=== PATIENT | male | born 1975 | race Caucasian/White ===

== ENCOUNTER 2017-11-13 08:15 | Observation (INO) ==
--- NOTE | 2017-11-13 08:28 | Emergency Department Note ---
Disposition Clinical Impression: Acute appendicitis Disposition: Admitted As Inpatient Condition: Undetermined General Adult HPI - General Chief complaint: ED Abdominal Pain Stated complaint: RLQ pain Time Seen by Provider: 11/13/17 08:21 Source: patient Limitations: no limitations - History of Present Illness Pain Scale: 7 - Related Data Home Medications Medication Instructions Recorded Confirmed Lisinopril-HCTZ 10-12.5 [Prinzide 1 tab PO DAILY 11/13/17 11/13/17 10-12.5] Allergies Allergy/AdvReac Type Severity Reaction Status Date / Time shellfish derived Allergy Swelling Verified 11/13/17 08:18 of Lip/Tongue/Throat Past Medical History - Past Medical History Medical history: Reports: asthma, hypertension Psychiatric history: Reports: no psych history - Social History Smoking Status: Never smoker Smokeless Tobacco Status: Yes Alcohol use: Reports: occasionally, heavy Drug use: Reports: none Physical Exam - General Limitations: no limitations General appearance: alert Course Vital Signs Temperature 98.7 F 11/13/17 08:18 Pulse Rate 78 11/13/17 08:18 Respiratory Rate 20 11/13/17 08:18 Blood Pressure 162/90 11/13/17 08:18 O2 Sat by Pulse Oximetry 98 11/13/17 08:18 Temperature 98.7 F 11/13/17 08:18 Pulse Rate 84 11/13/17 12:12 Respiratory Rate 16 11/13/17 12:12 Blood Pressure 138/85 11/13/17 12:12 O2 Sat by Pulse Oximetry 97 11/13/17 12:12 Oxygen Delivery Oxygen Delivery Room Air Medical Decision Making - Lab Data Result diagrams: 11/13/17 08:33 11/13/17 08:33 Lab Results 11/13/17 11/13/17 11/13/17 Range/Units 08:33 08:33 08:46 WBC 10.6 (4.3-11.1) K/mcL RBC 4.88 (4.19-5.50) M/mcL Hgb 16.2 (12.9-16.9) g/dL Hct 45.6 (37.5-50.1) % MCV 93.4 (83.0-100.0) fL MCH 33.2 (28.0-33.3) pg MCHC 35.5 (31.6-35.5) g/dL RDW 12.3 (11.5-14.5) % Plt Count 260 (140-400) K/mcL MPV 10.0 (9.4-12.4) fL Immature Gran % 0.2 (0-4) % Seg Neutrophils % 76.1 % Lymphocytes % 15.0 % Monocytes % 7.3 % Eosinophils % 0.8 % Basophils % 0.6 % Neutrophils # 8.1 (1.6-8.9) K/mcL Lymphocytes # 1.6 (0.6-4.6) K/mcL Monocytes # 0.8 (0.0-1.3) K/mcL Eosinophils # 0.1 (0.0-0.6) K/mcL Basophils # 0.1 (0.0-0.2) K/mcL Sodium 136 (136-145) mEq/L Potassium 3.6 (3.5-5.1) mEq/L Chloride 102 (98-107) mEq/L Carbon Dioxide 26 (23-29) mEq/L BUN 6 (6-20) mg/dL Creatinine 0.88 (0.70-1.30) mg/dL Est GFR ( Amer) > 60 (> 60) Est GFR (Non-Af Amer) > 60 (> 60) BUN/Creatinine Ratio 7 (6-26) Glucose 104 (70-105) mg/dL Calculated Osmolality 280 (280-300) Calcium 9.2 (8.6-10.3) mg/dL Total Bilirubin 0.8 (0.3-1.0) mg/dL Direct Bilirubin 0.2 (0.0-0.2) mg/dL Indirect Bilirubin 0.6 (0.0-1.2) mg/dL AST 26 (13-39) Units/L ALT 35 (7-52) Units/L Alkaline Phosphatase 90 (34-104) Units/L Serum Total Protein 7.4 (6.4-8.9) g/dL Albumin 4.5 (3.5-5.7) g/dL Globulin 2.9 (2.4-3.5) g/dL Albumin/Globulin Ratio 1.6 (1.1-2.2) Lipase 30 (11-82) Units/L Urine Color Yellow (Yellow) Urine Clarity Clear (Clear) Urine pH 6.0 (5.0-8.0) pH Units Ur Specific [place] 1.016 (1.010-1.025) Urine Protein Negative (Neg-Trace) mg/dL Urine Glucose (UA) Normal (Normal) mg/dL Urine Ketones Trace H (Negative) mg/dL Urine Blood Negative (Negative) Urine Nitrite Negative (Negative) Urine Bilirubin Negative (Negative) Urine Urobilinogen Normal (Normal) mg/dL Ur Leukocyte Esterase Negative (Negative) Urine Microscopic RBC 0-3 (0-3) per hpf Urine Microscopic WBC 0-3 (0-3) per hpf Ur Squamous Epith Cells None Seen (None-Few) per lpf Urine Bacteria None Seen (None-Few) per hpf Hyaline Casts None Seen (None-Few) per lpf Ur Culture Indicated? NO (NO) Attestation Statement - Attestation Attestation: I examined this patient and my medical decision-making was reviewed with the Resident Physician. I agree with the documented findings, disposition and treatment plan as described except to the extent set forth below. [id number] time provided Patient arrives complaining of right lower quadrant abdominal pain. I evaluated this patient in conjunction with the resident physician and have identified at the patient has localized right lower quadrant discomfort with palpation. Concern for acute surgical abdomen including such as appendicitis. Workup initiated
--- NOTE | 2017-11-13 08:34 | Emergency Department Note ---
Disposition Clinical Impression: Acute appendicitis Qualifiers: Acute appendicitis type: unspecified acute appendicitis type Qualified Code(s) : K35.80 - Unspecified acute appendicitis Disposition: Admitted As Inpatient Condition: Undetermined Referrals: NONE,PCP [Primary Care Provider] - Forms: ED Satisfaction Letter, Work/School Release Time of Disposition: 09:25 Abdominal Pain HPI - General Chief Complaint: ED Abdominal Pain Stated Complaint: RLQ pain Time Seen by Provider: 11/13/17 08:21 Source: patient Mode of arrival: ambulatory Limitations: no limitations Nursing Notes Reviewed: Yes Vital Signs Reviewed: Yes - History of Present Illness HPI Narrative: 42-year-old male with history of asthma and HTN arrives to the emergency department with right lower quadrant pain that started this morning. The patient has no other associated symptoms. He denies any nausea, vomiting, diarrhea, melena, hematochezia. He appears uncomfortable in the room and states that when he extends over the bumps in his car makes the pain worse. He denies any other complaints at this time. He denies any desire for analgesics at this time. No previous history of surgical history in his abdomen. Pain Scale: 7 - Related Data Allergies Allergy/AdvReac Type Severity Reaction Status Date / Time shellfish derived Allergy Swelling Verified 11/13/17 08:18 of Lip/Tongue/Throat All systems ED: reviewed and negative except as stated. Constitutional: Denies: fever, chills, weakness ENT ED: Denies: congestion Cardiovascular: Denies: chest pain Respiratory: Denies: dyspnea Gastrointestinal: Reports: abdominal pain. Denies: nausea, vomiting, diarrhea, constipation, hematemesis, melena, hematochezia Genitourinary: Denies: urgency, dysuria, frequency, hematuria, testicular pain, testicular mass Musculoskeletal: Denies: back pain, neck pain, arthralgia, myalgia Integumentary: Denies: rash Neurological: Denies: headache Abdominal Pain PMH - Past Medical History Medical history: Reports: asthma, hypertension Male Surgical History: Reports: no surgical history Psychiatric history: Reports: no psych history - Social History Smoking status: Never smoker Alcohol use: Reports: occasionally, heavy Drug use: Reports: none Physical Exam - General Limitations: no limitations General appearance: alert, in no apparent distress - Head Head exam: atraumatic, normocephalic, normal inspection - Eye Eye exam: Present: normal appearance, PERRL, EOMI - ENT ENT exam: normal exam, normal oropharynx, mucous membranes moist - Neck Neck exam: Present: normal inspection, full ROM, trachea midline - Chest Chest inspection: Present: normal inspection, symmetric chest wall rise - Respiratory Respiratory exam: Present: normal lung sounds bilaterally - Cardiovascular Cardiovascular exam: Present: regular rate, normal rhythm, normal heart sounds - Abdominal Exam Abdominal exam: Present: soft, tenderness (RLQ), heel tap sign, tenderness at McBurney's Point. Absent: distention, guarding, rebound, rigidity, psoas sign, obturator sign, Sherwood's sign, Rovsing's sign, pulsatile mass, hernia, scar - Extremities Exam Extremities exam: Present: normal inspection - Neurological Exam Neurological exam: Present: alert, oriented X3 - Skin Skin exam: Present: warm, dry, intact, normal color Course - Reevaluation(s) Reevaluation #1: Patient has uncomplicated appendicitis with appendicolith. Appendix dilated at 1.8 cm. No abscess or perforation. Patient's last by mouth intake was 10PM with food, 0230 AM with three 16 oz beers, 12 oz of water at 0700. Time: 09:15 Vital Signs Temperature 98.7 F 11/13/17 08:18 Pulse Rate 78 11/13/17 08:18 Respiratory Rate 20 11/13/17 08:18 Blood Pressure 162/90 11/13/17 08:18 O2 Sat by Pulse Oximetry 98 11/13/17 08:18 Temperature 98.7 F 11/13/17 08:18 Pulse Rate 78 11/13/17 08:18 Respiratory Rate 20 11/13/17 08:18 Blood Pressure 162/90 11/13/17 08:18 O2 Sat by Pulse Oximetry 98 11/13/17 08:18 Oxygen Delivery Oxygen Delivery Room Air Abdominal Pain - MDM Narrative Medical decision making narrative: We will admit to Dr. Eller. - Lab Data Lab results reviewed: Yes I reviewed the patient's lab results. Result diagrams: 11/13/17 08:33 11/13/17 08:33 Lab Results 11/13/17 11/13/17 11/13/17 Range/Units 08:33 08:33 08:46 WBC 10.6 (4.3-11.1) K/mcL RBC 4.88 (4.19-5.50) M/mcL Hgb 16.2 (12.9-16.9) g/dL Hct 45.6 (37.5-50.1) % MCV 93.4 (83.0-100.0) fL MCH 33.2 (28.0-33.3) pg MCHC 35.5 (31.6-35.5) g/dL RDW 12.3 (11.5-14.5) % Plt Count 260 (140-400) K/mcL MPV 10.0 (9.4-12.4) fL Immature Gran % 0.2 (0-4) % Seg Neutrophils % 76.1 % Lymphocytes % 15.0 % Monocytes % 7.3 % Eosinophils % 0.8 % Basophils % 0.6 % Neutrophils # 8.1 (1.6-8.9) K/mcL Lymphocytes # 1.6 (0.6-4.6) K/mcL Monocytes # 0.8 (0.0-1.3) K/mcL Eosinophils # 0.1 (0.0-0.6) K/mcL Basophils # 0.1 (0.0-0.2) K/mcL Sodium 136 (136-145) mEq/L Potassium 3.6 (3.5-5.1) mEq/L Chloride 102 (98-107) mEq/L Carbon Dioxide 26 (23-29) mEq/L BUN 6 (6-20) mg/dL Creatinine 0.88 (0.70-1.30) mg/dL Est GFR ( Amer) > 60 (> 60) Est GFR (Non-Af Amer) > 60 (> 60) BUN/Creatinine Ratio 7 (6-26) Glucose 104 (70-105) mg/dL Calculated Osmolality 280 (280-300) Calcium 9.2 (8.6-10.3) mg/dL Total Bilirubin 0.8 (0.3-1.0) mg/dL Direct Bilirubin 0.2 (0.0-0.2) mg/dL Indirect Bilirubin 0.6 (0.0-1.2) mg/dL AST 26 (13-39) Units/L ALT 35 (7-52) Units/L Alkaline Phosphatase 90 (34-104) Units/L Serum Total Protein 7.4 (6.4-8.9) g/dL Albumin 4.5 (3.5-5.7) g/dL Globulin 2.9 (2.4-3.5) g/dL Albumin/Globulin Ratio 1.6 (1.1-2.2) Lipase 30 (11-82) Units/L Urine Color Yellow (Yellow) Urine Clarity Clear (Clear) Urine pH 6.0 (5.0-8.0) pH Units Ur Specific [place] 1.016 (1.010-1.025) Urine Protein Negative (Neg-Trace) mg/dL Urine Glucose (UA) Normal (Normal) mg/dL Urine Ketones Trace H (Negative) mg/dL Urine Blood Negative (Negative) Urine Nitrite Negative (Negative) Urine Bilirubin Negative (Negative) Urine Urobilinogen Normal (Normal) mg/dL Ur Leukocyte Esterase Negative (Negative) Urine Microscopic RBC 0-3 (0-3) per hpf Urine Microscopic WBC 0-3 (0-3) per hpf Ur Squamous Epith Cells None Seen (None-Few) per lpf Urine Bacteria None Seen (None-Few) per hpf Hyaline Casts None Seen (None-Few) per lpf Ur Culture Indicated? NO (NO) - Radiology Data Radiology results reviewed: Yes I reviewed the patient's radiology results. Abdomen/Pelvis CT 11/13/17 08:24 IMPRESSION: 1. Acute uncomplicated appendicitis with an appendicolith. D/ / Man Medina MD / Man Medina MD Interpreting Provider: Man Medina MD
[2017-11-13 08:45] LABS: Basophils # 0.1 K/mcL (0.0-0.2); Basophils % 0.6 %; Eosinophils # 0.1 K/mcL (0.0-0.6); Eosinophils % 0.8 %; Hematocrit 45.6 % (37.5-50.1); Hemoglobin 16.2 g/dL (12.9-16.9); Immature Granulocytes % 0.2 % (0-4); Lymphocytes # 1.6 K/mcL (0.6-4.6); Mean Corpuscular HGB Conc 35.5 g/dL (31.6-35.5); Mean Corpuscular Hemoglobin 33.2 pg (28.0-33.3); Mean Corpuscular Volume 93.4 fL (83.0-100.0); Monocytes # 0.8 K/mcL (0.0-1.3); Monocytes % 7.3 %; Neutrophils # 8.1 K/mcL (1.6-8.9); Platelet Count 260 K/mcL (140-400); Red Blood Count 4.88 M/mcL (4.19-5.50); Red Cell Distribution Width 12.3 % (11.5-14.5); Segmented Neutrophils % 76.1 %
[2017-11-13 09:09] LABS: Alanine Aminotransferase 35 Units/L (7-52); Albumin 4.5 g/dL (3.5-5.7); Albumin/Globulin Ratio 1.6 (1.1-2.2); Alkaline Phosphatase 90 Units/L (34-104); Aspartate Amino Transferase 26 Units/L (13-39); BUN/Creatinine Ratio 7 (6-26); Bilirubin,Direct 0.2 mg/dL (0.0-0.2); Bilirubin,Indirect 0.6 mg/dL (0.0-1.2); Bilirubin,Total 0.8 mg/dL (0.3-1.0); Blood Urea Nitrogen 6 mg/dL (6-20); Calcium 9.2 mg/dL (8.6-10.3); Carbon Dioxide 26 mEq/L (23-29); Chloride 102 mEq/L (98-107); Globulin 2.9 g/dL (2.4-3.5); Glucose 104 mg/dL (70-105); Lipase 30 Units/L (11-82); Osmolality,Calculated 280 (280-300); Potassium 3.6 mEq/L (3.5-5.1); Sodium 136 mEq/L (136-145); Total Protein 7.4 g/dL (6.4-8.9); eGFR For African Americans > 60 (> 60); eGFR For Non-African Americans > 60 (> 60)
[2017-11-13 09:16] LABS: Bilirubin,Urine Negative (Negative); Blood,Urine Negative (Negative); Clarity,Urine Clear (Clear); Color,Urine Yellow (Yellow); Glucose,Urine (UA) Normal (Normal); Ketones,Urine Trace mg/dL (Negative); Leukocyte Esterase,Urine Negative (Negative); Nitrite,Urine Negative (Negative); Protein,Urine Negative (Neg-Trace); Specific Gravity,Urine 1.016 (1.010-1.025); Urobilinogen,Urine Normal (Normal)
[2017-11-13] MEDS ORDERED: Piperacillin/Tazobactam 3.375 GM in 0.9 % Sodium Chloride Mini Bag 100 ML IVPB ONE (09:16)
[2017-11-13] MEDS ORDERED: 0.9 % Sodium Chloride 1,000 ML IVC ONE (09:16)
[2017-11-13 09:18] LABS: Bacteria,Urine None Seen per hpf (None-Few); Hyaline Casts,Urine None Seen per lpf (None-Few); RBC,Urine 0-3 per hpf (0-3); Squamous Epithelial Cell,Urine None Seen per lpf (None-Few); WBC,Urine 0-3 per hpf (0-3)
--- NOTE | 2017-11-13 09:55 | General Surg History&Physical ---
Date of Encounter: 11/13/17 Time of Encounter: 09:53 Assessment and Plan (1) Acute appendicitis Current Visit: Yes Status: Acute Plan for laparoscopic appendectomy. Risks, benefits, and expected outcomes explained the patient agrees to proceed. The assessment and plan as outlined above was discussed with the patient and/or family members who expressed understanding and agreement. All questions were answered. Qualifiers: Acute appendicitis type: with localized peritonitis Qualified Code(s): K35.3 - Acute appendicitis with localized peritonitis History of Present Illness HPI: Mr. Melendez is a 42 year old male that reported to the emergency department. He reports pain for the previous 8-10 hours and his right lower quadrant. He denies any fevers or chills. Denies any emesis. He denies any nausea currently. He does admit to anorexia. His last meal intake was Beer 6 hours ago. Past Med Surg Social Fam HX - Past Medical History Medical history: asthma, hypertension Psychiatric history: no psych history - Social History Smoking Status: Never smoker Smokeless Tobacco Status: Yes Alcohol use: occasionally, heavy Drug use: none Medications and Allergies 3 Allergy/AdvReac Type Severity Reaction Status Date / Time shellfish derived Allergy Swelling Verified 11/13/17 08:18 of Lip/Tongue/Throat Review of Systems All systems PM: reviewed and no additional remarkable complaints except as stated All systems PM: The remainder of the systems were reviewed and are negative General Surgery Exam Initial Vital Signs Temp Pulse Resp BP Pulse Ox 98.7 F 78 20 162/90 98 11/13/17 08:18 11/13/17 08:18 11/13/17 08:18 11/13/17 08:18 11/13/17 08:18 - Eyes PERRL, normal ocular movement - Neck trachea midline - Respiratory normal respiratory effort - Cardiovascular Cardiovascular exam: Present: RRR - Abdomen Abdomen general surgery: Present: soft Abdominal Tenderness: Present: RLQ - Integumentary Integumentary general surgery: Present: no abnormal pigmentation - Neurologic Present: CN 2-12 grossly intact, normal sensation Results - Labs 11/13/17 08:33 11/13/17 08:33 Abnormal lab results Urine Ketones Trace mg/dL (Negative) H 11/13/17 08:46 Diabetes panel 11/13/17 Range/Units 08:33 Sodium 136 (136-145) mEq/L Potassium 3.6 (3.5-5.1) mEq/L Chloride 102 (98-107) mEq/L Carbon Dioxide 26 (23-29) mEq/L BUN 6 (6-20) mg/dL Creatinine 0.88 (0.70-1.30) mg/dL Glucose 104 (70-105) mg/dL Calcium 9.2 (8.6-10.3) mg/dL AST 26 (13-39) Units/L ALT 35 (7-52) Units/L Alkaline Phosphatase 90 (34-104) Units/L Albumin 4.5 (3.5-5.7) g/dL Calcium panel 11/13/17 Range/Units 08:33 Calcium 9.2 (8.6-10.3) mg/dL Albumin 4.5 (3.5-5.7) g/dL Pituitary panel 11/13/17 Range/Units 08:33 Sodium 136 (136-145) mEq/L Potassium 3.6 (3.5-5.1) mEq/L Chloride 102 (98-107) mEq/L Carbon Dioxide 26 (23-29) mEq/L BUN 6 (6-20) mg/dL Creatinine 0.88 (0.70-1.30) mg/dL Glucose 104 (70-105) mg/dL Calcium 9.2 (8.6-10.3) mg/dL Adrenal panel 11/13/17 Range/Units 08:33 Sodium 136 (136-145) mEq/L Potassium 3.6 (3.5-5.1) mEq/L Chloride 102 (98-107) mEq/L Carbon Dioxide 26 (23-29) mEq/L BUN 6 (6-20) mg/dL Creatinine 0.88 (0.70-1.30) mg/dL Glucose 104 (70-105) mg/dL Calcium 9.2 (8.6-10.3) mg/dL Total Bilirubin 0.8 (0.3-1.0) mg/dL AST 26 (13-39) Units/L ALT 35 (7-52) Units/L Alkaline Phosphatase 90 (34-104) Units/L Albumin 4.5 (3.5-5.7) g/dL All other labs normal. - Imaging CT scan - abdomen: image reviewed CT scan - pelvis: image reviewed
--- NOTE | 2017-11-13 11:47 | Operative Note ---
Date of procedure: 11/13/17 Pre-op diagnosis: appendicitis Post-op diagnosis: same Procedure: Laparoscopic appendectomy Anesthesia: ASAF Surgeon: Dipak Eller Was there an administrative assistant front desk present: No Estimated blood loss (cc): 5 Specimen: appendix Condition: stable Disposition: same day Procedure in Detail: After informed consent, patient was taken to the operating room placed in supine position. After adequate sedation anesthesia the abdomen was prepped and draped. A 12 mm cannula was placed in the umbilicus. A 5 mm cannulas placed in suprapubic region and the left lower quadrant. Camera was inserted and the abdomen after a pneumoperitoneum. 2 Farrah graspers were used to identify the base of the appendix. A appendiceal window was created. A RANDI endoscopic stapler was placed across the base. A vascular load was placed across the mesoappendix. Once the appendix was was placed in an Endobag and removed through the umbilicus. The right lower quadrant was suctioned dry no bleeding was identified. Remainder the pneumoperitoneum was evacuated. The umbilicus was closed with an 0 Vicryl suture in [id number] fashion. Skin was closed with 4-0 Vicryl suture and Dermabond.
[2017-11-13] MEDS ORDERED: *HR* Rocuronium Bromide 50 MG/5 ML VIAL ONE ×2 (12:31→13:57)
[2017-11-13] MEDS ORDERED: Lidocaine -MPF 4% 5 ML AMPUL ONE (12:31)
[2017-11-13] MEDS ORDERED: *HR* Midazolam HCl 2 MG/2 ML VIAL ONE ×2 (12:31)
[2017-11-13] MEDS ORDERED: *HR* FentaNYL (PF) 100 MCG/2 ML VIAL ONE ×2 (12:31→13:47)
[2017-11-13] MEDS ORDERED: *HR* Propofol 200 MG/20 ML VIAL IVP ONE (12:31)
[2017-11-13] MEDS ORDERED: Lidocaine -MPF 2% 2 ML VIAL ONE (12:31)
[2017-11-13] MEDS ORDERED: *HR* Succinylcholine 200 MG/10 ML VIAL IVP ONE (12:31)
--- NOTE | 2017-11-13 13:12 | Anesthesia Evaluation PreOp ---
Date of Encounter: 11/13/17 Time of Encounter: 13:11 - Past History Planned Operation: Lap Appy Cardiac History: HTN Pulmonary History: Asthma HAND RIVETER History: Denies Any Significant HX Other Medical History: Denies Any Significant HX Anesthesia History: Past Anesthesia (NO prior GA), MH (NO FamHx of MH) Alcohol Use: occasionally, heavy Drug use: none Medications and Allergies Lisinopril-HCTZ 10-12.5 [Prinzide 10-12.5] 1 tab PO DAILY 11/13/17 [History] OxyCODONE/APAP 5/325 [Percocet 5/325 MG] 1 each PO Q6HR PRN 7 Days #10 tablet [Rx] 3 Allergy/AdvReac Type Severity Reaction Status Date / Time shellfish derived Allergy Swelling Verified 11/13/17 08:18 of Lip/Tongue/Throat - Meds/Allergy Pre-op Review Medications Reviewed: Yes Allergies Reviewed: Yes Beta Blockers on Current Med List: No Anesthesia Results - Labs 11/13/17 08:33 11/13/17 08:33 Laboratory Results WBC 10.6 K/mcL (4.3-11.1) 11/13/17 08:33 RBC 4.88 M/mcL (4.19-5.50) 11/13/17 08:33 Hgb 16.2 g/dL (12.9-16.9) 11/13/17 08:33 Hct 45.6 % (37.5-50.1) 11/13/17 08:33 MCV 93.4 fL (83.0-100.0) 11/13/17 08:33 MCH 33.2 pg (28.0-33.3) 11/13/17 08:33 MCHC 35.5 g/dL (31.6-35.5) 11/13/17 08:33 RDW 12.3 % (11.5-14.5) 11/13/17 08:33 Plt Count 260 K/mcL (140-400) 11/13/17 08:33 MPV 10.0 fL (9.4-12.4) 11/13/17 08:33 Immature Gran % 0.2 % (0-4) 11/13/17 08:33 Seg Neutrophils % 76.1 % 11/13/17 08:33 Lymphocytes % 15.0 % 11/13/17 08:33 Monocytes % 7.3 % 11/13/17 08:33 Eosinophils % 0.8 % 11/13/17 08:33 Basophils % 0.6 % 11/13/17 08:33 Neutrophils # 8.1 K/mcL (1.6-8.9) 11/13/17 08:33 Lymphocytes # 1.6 K/mcL (0.6-4.6) 11/13/17 08:33 Monocytes # 0.8 K/mcL (0.0-1.3) 11/13/17 08:33 Eosinophils # 0.1 K/mcL (0.0-0.6) 11/13/17 08:33 Basophils # 0.1 K/mcL (0.0-0.2) 11/13/17 08:33 Sodium 136 mEq/L (136-145) 11/13/17 08:33 Potassium 3.6 mEq/L (3.5-5.1) 11/13/17 08:33 Chloride 102 mEq/L (98-107) 11/13/17 08:33 Carbon Dioxide 26 mEq/L (23-29) 11/13/17 08:33 BUN 6 mg/dL (6-20) 11/13/17 08:33 Creatinine 0.88 mg/dL (0.70-1.30) 11/13/17 08:33 Est GFR ( Amer) > 60 (> 60) 11/13/17 08:33 Est GFR (Non-Af Amer) > 60 (> 60) 11/13/17 08:33 BUN/Creatinine Ratio 7 (6-26) 11/13/17 08:33 Glucose 104 mg/dL (70-105) 11/13/17 08:33 Calculated Osmolality 280 (280-300) 11/13/17 08:33 Calcium 9.2 mg/dL (8.6-10.3) 11/13/17 08:33 Total Bilirubin 0.8 mg/dL (0.3-1.0) 11/13/17 08:33 Direct Bilirubin 0.2 mg/dL (0.0-0.2) 11/13/17 08:33 Indirect Bilirubin 0.6 mg/dL (0.0-1.2) 11/13/17 08:33 AST 26 Units/L (13-39) 11/13/17 08:33 ALT 35 Units/L (7-52) 11/13/17 08:33 Alkaline Phosphatase 90 Units/L (34-104) 11/13/17 08:33 Serum Total Protein 7.4 g/dL (6.4-8.9) 11/13/17 08:33 Albumin 4.5 g/dL (3.5-5.7) 11/13/17 08:33 Globulin 2.9 g/dL (2.4-3.5) 11/13/17 08:33 Albumin/Globulin Ratio 1.6 (1.1-2.2) 11/13/17 08:33 Lipase 30 Units/L (11-82) 11/13/17 08:33 Urine Color Yellow (Yellow) 11/13/17 08:46 Urine Clarity Clear (Clear) 11/13/17 08:46 Urine pH 6.0 pH Units (5.0-8.0) 11/13/17 08:46 Ur Specific [place] 1.016 (1.010-1.025) 11/13/17 08:46 Urine Protein Negative mg/dL (Neg-Trace) 11/13/17 08:46 Urine Glucose (UA) Normal mg/dL (Normal) 11/13/17 08:46 Urine Ketones Trace mg/dL (Negative) H 11/13/17 08:46 Urine Blood Negative (Negative) 11/13/17 08:46 Urine Nitrite Negative (Negative) 11/13/17 08:46 Urine Bilirubin Negative (Negative) 11/13/17 08:46 Urine Urobilinogen Normal mg/dL (Normal) 11/13/17 08:46 Ur Leukocyte Esterase Negative (Negative) 11/13/17 08:46 Urine Microscopic RBC 0-3 per hpf (0-3) 11/13/17 08:46 Urine Microscopic WBC 0-3 per hpf (0-3) 11/13/17 08:46 Ur Squamous Epith Cells None Seen per lpf (None-Few) 11/13/17 08:46 Urine Bacteria None Seen per hpf (None-Few) 11/13/17 08:46 Hyaline Casts None Seen per lpf (None-Few) 11/13/17 08:46 Ur Culture Indicated? NO (NO) 11/13/17 08:46 Impressions Abdomen/Pelvis CT 11/13/17 08:24 IMPRESSION: 1. Acute uncomplicated appendicitis with an appendicolith. D/ / Man Medina MD / Man Medina MD Interpreting Provider: Man Medina MD Anesthesia Exam Vital Signs Temp Pulse Resp BP Pulse Ox 11/13/17 12:12 84 16 138/85 97 11/13/17 10:29 18 141/83 11/13/17 09:34 84 20 156/95 97 11/13/17 08:18 98.7 F 78 20 162/90 98 Intake and Output 11/12/17 11/13/17 11/13/17 23:59 07:59 15:59 Other: Stool Characteristics Normal for Patient Weight 79.379 kg Patient Weight 11/13/17 23:59 Weight 79.379 kg Height: 5'8" Weight: 175# BMI = 27 NPO (# of Hours): MNOC - HEENT Pupil (Motor): Pupils equal, EOMI Mallampati: II Teeth: Normal Oral Opening: Greater than 3 - HAND RIVETER LOC: Oriented HAND RIVETER Motor: Normal RUE, Normal LUE, Normal RLE, Normal LLE, Normal Face HAND RIVETER Sensory: Normal: RUE, LUE, RLE, LLE, Face - Cardiac Rhythm: Regular Murmur: None - Pulmonary Breath Sounds: bilateral Clear Respiratory Effort: Symmetrical Anesthesia Assess/Plan ASA Score: 2 Modified Kenan Scale for Level of Consciousness: Cooperative, oriented, and tranquil Anesthetic Plan: General Monitoring Plan: Standard Monitors Recovery Plan: PACU Anes Supervising Prov Stmt: Pt seen/evaluated, R&B Discussed, questions answered and consent obtained. Ag Medley MD
--- NOTE | 2017-11-13 13:18 | Discharge Summary ---
Outpatient Proc Discharge Plan - Plan Additional Instructions: Patient may shower tonight. Patient may have a regular diet. Patient may return to normal activities when he feels fit. Patient should avoid driving for next 5-7 days. Patient follow-up with me in the office approximately 2 weeks. Prescriptions: OxyCODONE/APAP 5/325 [Percocet 5/325 MG] 1 each PO Q6HR PRN 7 Days #10 tablet PRN Reason: Pain Home Medications: Lisinopril-HCTZ 10-12.5 [Prinzide 10-12.5] 1 tab PO DAILY 11/13/17 [History] OxyCODONE/APAP 5/325 [Percocet 5/325 MG] 1 each PO Q6HR PRN 7 Days #10 tablet [Rx]
[2017-11-13] MEDS ORDERED: Acetaminophen IV 1,000 MG/100 ML INFUS..BTL ONE (13:19)
[2017-11-13] MEDS ORDERED: Dexamethasone 4 MG/ML VIAL ONE (13:44)
[2017-11-13] MEDS ORDERED: Ketorolac 30 MG/ML VIAL ONE (13:44)
[2017-11-13] MEDS ORDERED: Ondansetron 4 MG/2 ML VIAL ONE (13:44)
[2017-11-13] MEDS ORDERED: Ibuprofen 600 MG TABLET PO PRN (15:07)
[2017-11-13] MEDS ORDERED: Ondansetron 4 MG/2 ML VIAL IVP PRN (15:07)
[2017-11-13] MEDS ORDERED: *HR* OxyCODONE/APAP 5/325 TABLET PO PRN (15:07)
[2017-11-13] MEDS ORDERED: 0.9 % Sodium Chloride 1,000 ML IVC SCH (15:07)
[2017-11-13 17:26] VITALS: BP 133/88
--- NOTE | 2017-11-13 18:25 | Anesthesia Evaluation Post Op ---
Date of Encounter: 11/13/17 Time of Encounter: 14:45 - Vital Signs Vital Signs: Vital Signs Temp Pulse Resp BP Pulse Ox 11/13/17 14:45 97.7 F 64 16 136/84 96 11/13/17 14:35 68 16 134/93 94 11/13/17 14:25 73 16 140/89 96 11/13/17 14:15 98.5 F 62 16 129/77 94 11/13/17 12:12 84 16 138/85 97 11/13/17 10:29 18 141/83 11/13/17 09:34 84 20 156/95 97 11/13/17 08:18 98.7 F 78 20 162/90 98 Intake and Output 11/13/17 11/13/17 11/13/17 07:59 15:59 23:59 Intake Total 240 / 240 Output Total 5 / 5 Balance -5 / -5 240 / 240 Intake: Oral 240 / 240 Output: Estimated Blood Loss 5 / 5 Other: Meal Dinner Percent of Meal Consumed 50% Stool Characteristics Normal for Patient Weight 79.379 kg Patient Weight 11/13/17 23:59 Weight 79.379 kg - Lungs Lungs: Clear Ascult./Percussion - Airway Airway: Non-obstructed - Cardiovascular Regular Rate - Mental Status Mental Status: Alert & Oriented, Answers Appropriately - Pain Pain Scale: 0 Pain Scale used: Numeric (1 - 10) - Nausea Vomiting Nausea Vomiting: Not Present - Hydration Hydration: Ice chips, Has not voided - Discharge PostOp Status: Transfer Patient to floor Anes Supervising Prov Stmt: Pt seen/evaluated, VSS And pt has met criteria for discharge to floor. - MD Jasmyne
== END 2017-11-13 18:15 | disposition home or self-care (01) ==
LOC: 3ANU 08:15 → EMEROO 08:15 → 3ANU 12:43
PROVIDERS: ADMIT Surgery; ATTEND Surgery